=== PATIENT | male | born 1980 | race Caucasian/White ===

== ENCOUNTER 2017-02-06 19:09 | Emergency (ER) | payer OTHER ==
[~2017-02-06] VITALS: Ht 172.7 cm; Wt 99.8 kg
[~2017-02-06 19:09] MED LIST: DILAUDID2 MG PO; FLEXERIL10 MG PO; PANTOPRAZOLE SO40 M1 PO; PERCOCET 325 MG1 TA2 PO; VALIUM2 MG PO
[2017-02-06] MEDS ORDERED: MULTI-DAY VITA1 EACH PO (19:53)
--- NOTE | 2017-02-06 19:53 | ED GI/GU/ABDOMINAL COMPLAINT ---
History of Present Illness General Chief Complaint: Abdominal Pain/Flank Pain Stated Complaint: ABD PAIN Source: patient, old records Exam Limitations: no limitations Vital Signs & Intake/Output Vital Signs & Intake/Output Vital Signs Date Time Temp Pulse Resp B/P B/P Pulse O2 O2 Flow FiO2 Mean Ox Delivery Rate 02/07 2204 110/70 02/06 1917 98.9 89 15 135/83 97 Room Air Room Air ED Intake and Output 02/07 0000 02/06 1200 Intake Total 1000 Output Total Balance 1000 Intake, IV 1000 Intake, Oral 0 Patient 220 lb Weight Weight Reported by Patient Measurement Method Allergies Coded Allergies: NO KNOWN ALLERGIES (09/28/15) Reconcile Medications Multivitamin (Multi-Day Vitamins) 1 EACH TABLET 1 TAB PO DAILY SUPPLEMENT ( Reported) Pantoprazole Sodium 40 MG TABLET.DR 1 TAB PO DAILY GI (Reported) Triage Note: PT TO ED FOR C/C OF R ABD PAIN, ?HERNIA PER PT. WOKE UP WITH SMALL BULGE NOTED TO ABD, LIFTED 80 POUND BAGS YESTERDAY WITHOUT DIFFICULTY. PT REPORTS SOME NAUSEA, +HEADACHE. Triage Nurses Notes Reviewed? yes Onset: Abrupt Duration: day(s): (1), intermittent, waxing and waning Timing: recent history Quality/Severity: aching Severity Numbers: 5 Location: right lower quadrant Radiation: no radiation Activities at Onset: none Prior Abdominal Problems: none Modifying Factors: Worsens With: palpation. Associated Symptoms: DENIES HPI: 36-year-old male presents to ER for evaluation complaining of intermittent waxing and waning in intensity 6 out of 10 right mid and right lower quadrant abdominal tenderness. He first noticed the symptoms when he woke up this morning however went to work. The patient states that he does a lot of heavy lifting at work harder however denies any known specific injury. Pain is nonradiating. He denies any urinary symptoms and has made him nauseous today however denies vomiting diarrhea constipation. No fever no chills. He took Tylenol around 1:00 for a headache which she still has. No vision changes. No back pain. His abdominal surgeries are significant for multiple inguinal hernia repairs prior to 1-year-old and a nephrectomy. No other modifying factors or associated symptoms otherwise. (MARICRUZ CONLEY,ALE) Past History Travel History Traveled to [place] past 21 day No Medical History Any Pertinent Medical History? 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 No (ALE CAZARES) Review of Systems Review of Systems Constitutional: Reports: see HPI. All Other Systems: Reviewed and Negative Comments Review of systems: See HPI, All other systems negative. Constitutional, no chills no fever, no malaise HEENT: No visual changes no sore throat no congestion, no ear pain Cardiovascular: No chest pain , no palpitation , no orthopnea Skin: no rashes, no change in skin Respiratory: No dyspnea no cough no sputum GI: nausea no vomiting, no diarrhea, no bloating/constipation : No dysuria No hematuria, no frequency, no discharge Muscle skeletal: No joint pain, no joint swelling, no back pain, no neck pain, Neurologic: No numbness no headache Psych: No stress. Heme/endocrine: No bruising no bleeding Immunology: No lymphadenopathy (ALE CAZARES) Physical Exam Physical Exam General Appearance: well developed/nourished, alert, awake Gastrointestinal: soft Comments: Well-developed well-nourished person in no acute distress HEENT: Normal EENT exam; PERRL, EOMI, no nystagmus. HEAD is atraumatic. moist mucous membranes. Neck: Supple, normal range of motion Back: Nontender, no CVA tenderness. Full range of motion Cardiovascular: Regular rate and rhythms no murmurs rubs Respiratory: Chest nontender.There were no bony deformities, no asymmetry. No respiratory distress. Patient speaking in full complete sentences. 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 Normal bowel sounds. No rebound/ guarding, Extremity: No edema, full range of motion of extremities Neuro: Alert oriented x3, motor sensory normal. There were no obvious focal neurologic abnormalities. Skin: No appreciable rash on exposed skin, skin is warm and dry. Psych: Mood and affect is normal, memory and judgment is normal. Core Measures ACS in differential dx? No Severe Sepsis Present: No Septic Shock Present: No (MARICRUZ CONLEY,ALE) Progress Differential Diagnosis: appendicitis, bowel obstruction, colon cancer, gastritis , hepatitis, hernia, inflamm bowel dis, pancreatitis, peptic ulcer, SBO Plan of Care: Orders Procedure Date/time Status COMPREHENSIVE METABOLIC PANEL 02/06 2019 Complete CBC WITHOUT DIFFERENTIAL 02/06 2019 Complete Laboratory Tests 02/06/172040: Anion Gap 15, Estimated GFR > 60, BUN/Creatinine Ratio 12.5, Glucose 88, Calcium 9.5, Total Bilirubin 0.7, AST 33, ALT 52, Alkaline Phosphatase 70, Total Protein 7.4, Albumin 4.3, Globulin 3.1, Albumin/Globulin Ratio 1.4, CBC w Diff NO MAN DIFF REQ, RBC 5.18, MCV 89.1, MCH 29.6, RDW 13.6, MPV 7.9, Gran % 60.3, Lymphocytes % 30.9, Monocytes % 7.7, Eosinophils % 0.8, Basophils % 0.3, Absolute Granulocytes 6.0, Absolute Lymphocytes 3.1, Absolute Monocytes 0.8 H, Absolute Eosinophils 0.1, Absolute Basophils 0, PUBS MCHC 33.3 Labs ordered patient medicated with Tylenol by mouth IV fluids CAT scan ordered 02/06/2017 9:48:50 PM discussed with the patient at length all of his lab results pending CAT scan he denies any symptoms at this time On repeat evaluation patient is resting comfortably. I discussed with the patient at length all of their results and incidental findings, he is aware of the renal lesion on the right kidney. I had an extensive conversation regarding need for close follow up with their primary care physician this week as well as return precautions. I answered all of their questions, they feel comfortable with the plan and follow-up care. She is declining a finger pain when offered (MARICRUZ CONLEY,ALE) Diagnostic Imaging: Viewed by Me: CT Scan. Discussed w/RAD: CT Scan. Radiology Impression: PATIENT: WAN KNIGHT JR PRESENT AGE: 36 PATIENT ACCOUNT NO: [id number] : 80 LOCATION: [facility] ORDERING PHYSICIAN: ALE CONLEY SERVICE DATE: 02/06/17 EXAM TYPE: CAT - CT ABD & PELVIS W IV CONTRAST EXAMINATION: CT ABDOMEN AND PELVIS WITH CONTRAST CLINICAL INFORMATION: Right lower quadrant abdominal pain and nausea. Evaluate for appendicitis, hernia. COMPARISON: CT chest dated 08/24/2016. TECHNIQUE: Multidetector volumetric imaging was performed of the abdomen and pelvis before and after the IV administration of 94 mL of Optiray 320 intravenous contrast. Sagittal and coronal reformatted images were obtained on the technologist's workstation. DLP: 645.86 mGy-cm. FINDINGS: LUNG BASES: The visualized lung bases are unremarkable. LIVER, GALLBLADDER, AND BILIARY TREE: The liver is normal in size, shape, and attenuation. No focal hepatic lesion or biliary ductal dilatation is present. The gallbladder is unremarkable with no evidence of radiopaque gallstones, gallbladder wall thickening, or obvious pericholecystic inflammatory changes. PANCREAS: Unremarkable. SPLEEN: Unremarkable. ADRENAL GLANDS: Unremarkable. KIDNEYS AND URETERS: The left kidney is surgically absent. There is a new 1.8 cm nonspecific hypodensity within the superior pole of the right kidney. Nonemergent ultrasound follow-up is recommended to help further characterize. There is no right-sided hydronephrosis or nephrolithiasis. BLADDER: Nondistended. GASTROINTESTINAL TRACT: No large or small bowel obstruction. The appendix is normal. No intra-abdominal free air or free fluid. ABDOMINAL WALL: There are small bilateral fat-containing inguinal hernias, left greater than right. LYMPH NODES: There is no significant intra- abdominal lymphadenopathy. VASCULAR: Contrast opacifies the abdominal aorta and its branch vessels. The IVC is unremarkable. PELVIC VISCERA: The prostate and seminal vesicles are unremarkable. OSSEOUS STRUCTURES: There is a bone island superior to the left acetabulum. No additional osseous abnormality is identified. IMPRESSION: 1. Normal appendix. No large or small bowel obstruction. 2. No hydronephrosis or nephrolithiasis. New hypoenhancing lesion within the superior pole of the right kidney which is nonspecific. Nonemergent ultrasound follow-up is recommended to help further characterize. DICTATED BY: ZAINA GERMAIN MD DATE/TIME DICTATED:02/06/172140 SOLUTION MAKER:YAJAIRA DATE/TIME TRANSCRIBED:02/06/172140 CONFIDENTIAL, DO NOT COPY WITHOUT APPROPRIATE AUTHORIZATION. <Electronically signed in Other Vendor System> SIGNED BY: ZAINA GERMAIN MD 04/2203 Initial ED EKG: none (ALE CAZARES) Departure Departure Time of Disposition: 2204 Disposition: HOME OR SELF CARE Condition: Stable Clinical Impression Primary Impression: Abdominal pain Secondary Impressions: Inguinal hernia, Renal lesion Referrals: UNKNOWN (PCP/Family) Additional Instructions: Follow-up with your primary care physician on Wednesday limited heavy lifting Tylenol if needed for pain. Follow-up with her primary care physician as discussed regarding incidental finding during the cyst on your kidney. Return to the ER anytime sooner with any concerns. Departure Forms: Customer Survey General Discharge Information (ALE CAZARES) PA/CLOTH SECONDS SORTER Co-Sign Statement Statement: ED Attending supervision documentation- [] I saw and evaluated the patient. I have also reviewed all the pertinent lab results and diagnostic results. I agree with the findings and the plan of care as documented in the PA's/CLOTH SECONDS SORTER's documentation. [X] I have reviewed the ED Record and agree with the PA's/CLOTH SECONDS SORTER's documentation. [] Additions or exceptions (if any) to the PAs/CLOTH SECONDS SORTER's note and plan are summarized below: [] (AMAN MELGOZA,SAMY)
[2017-02-06 20:58] LABS: ABSOLUTE BASOPHIL COUNT 0 /CUMM (0.0-0.2); ABSOLUTE EOSINOPHIL COUNT 0.1 /CUMM (0.0-0.7); ABSOLUTE LYMPH COUNT 3.1 /CUMM (1.2-3.4); ABSOLUTE MONOCYTE COUNT 0.8 /CUMM (0.10-0.60); BASOPHIL % 0.3 % (0.0-2.0); EOSINOPHIL % 0.8 % (0-5); GRANULOCYTE % 60.3 % (42.2-75.2); HEMATOCRIT 46.2 % (42-52); MEAN CORPUSCULAR HGB 29.6 PG (27.0-31.0); MEAN CORPUSCULAR HGB CONC 33.3 G/DL (33.0-37.0); MEAN CORPUSCULAR VOLUME 89.1 FL (80.0-94.0); MEAN PLATELET VOLUME 7.9 FL (7.4-10.4); PLATELET COUNT 274 /CUMM (130-400); RBC DISTRIBUTION WIDTH 13.6 % (11.5-14.5); RED BLOOD CELL CT 5.18 /CUMM (4.70-6.10); WHITE BLOOD CELL COUNT 9.9 /CUMM (4.8-10.8)
[2017-02-06 22:04] VITALS: BP 110/70
--- NOTE | 2017-02-06 22:04 | CT SCAN REPORT ---
EXAMINATION: CT ABDOMEN AND PELVIS WITH CONTRAST CLINICAL INFORMATION: Right lower quadrant abdominal pain and nausea. Evaluate for appendicitis, hernia. COMPARISON: CT chest dated 08/24/2016. TECHNIQUE: Multidetector volumetric imaging was performed of the abdomen and pelvis before and after the IV administration of 94 mL of Optiray 320 intravenous contrast. Sagittal and coronal reformatted images were obtained on the technologist's workstation. DLP: 645.86 mGy-cm. FINDINGS: LUNG BASES: The visualized lung bases are unremarkable. LIVER, GALLBLADDER, AND BILIARY TREE: The liver is normal in size, shape, and attenuation. No focal hepatic lesion or biliary ductal dilatation is present. The gallbladder is unremarkable with no evidence of radiopaque gallstones, gallbladder wall thickening, or obvious pericholecystic inflammatory changes. PANCREAS: Unremarkable. SPLEEN: Unremarkable. ADRENAL GLANDS: Unremarkable. KIDNEYS AND URETERS: The left kidney is surgically absent. There is a new 1.8 cm nonspecific hypodensity within the superior pole of the right kidney. Nonemergent ultrasound follow-up is recommended to help further characterize. There is no right-sided hydronephrosis or nephrolithiasis. BLADDER: Nondistended. GASTROINTESTINAL TRACT: No large or small bowel obstruction. The appendix is normal. No intra-abdominal free air or free fluid. ABDOMINAL WALL: There are small bilateral fat-containing inguinal hernias, left greater than right. LYMPH NODES: There is no significant intra-abdominal lymphadenopathy. VASCULAR: Contrast opacifies the abdominal aorta and its branch vessels. The IVC is unremarkable. PELVIC VISCERA: The prostate and seminal vesicles are unremarkable. OSSEOUS STRUCTURES: There is a bone island superior to the left acetabulum. No additional osseous abnormality is identified. IMPRESSION: 1. Normal appendix. No large or small bowel obstruction. 2. No hydronephrosis or nephrolithiasis. New hypoenhancing lesion within the superior pole of the right kidney which is nonspecific. Nonemergent ultrasound follow-up is recommended to help further characterize.
== END 2017-02-06 22:16 ==
LOC: ERH 19:09
PROVIDERS: Physician Assistant Medical
DX: K40.90 Unilateral inguinal hernia, without obstruction or gangrene, not specified as recurrent (principal); N28.9 Disorder of kidney and ureter, unspecified
CPT/HCPCS: 74177

== ENCOUNTER 2017-11-04 17:02 | Emergency (ER) | payer OTHER ==
[~2017-11-04] VITALS: Ht 172.7 cm; Wt 99.8 kg
[~2017-11-04 17:02] MED LIST changes: +MULTI-DAY VITA1 EACH PO
[2017-11-04 17:32] VITALS: BP 120/64
--- NOTE | 2017-11-04 19:16 | ED NECK/BACK PAIN COMPLAINT ---
History of Present Illness General Chief Complaint: Lower Extremity Problems Stated Complaint: PT HAS SHOOTING BACK PAIN Source: patient Exam Limitations: no limitations Vital Signs & Intake/Output Vital Signs & Intake/Output Vital Signs Date Time Temp Pulse Resp B/P B/P Pulse O2 O2 Flow FiO2 Mean Ox Delivery Rate 11/04 2001 97 Room Air 11/04 1732 97.0 90 18 120/64 97 Room Air Room Air Allergies Coded Allergies: NO KNOWN ALLERGIES (09/28/15) Reconcile Medications Multivitamin (Multi-Day Vitamins) 1 EACH TABLET 1 TAB PO DAILY SUPPLEMENT ( Reported) Pantoprazole Sodium 40 MG TABLET.DR 1 TAB PO DAILY GI (Reported) Tylenol With Codeine (Tylenol With Codeine #3 Tablet) 300 MG-30 MG TABLET 1 TAB PO BIDP PRN PAIN DO NOT OPERATE MOTOR VEHICLES WITH THIS MEDICATION Triage Note: PT TO ED WITH C/O LOW BACK/COCCYX AREA PAIN "WOKE UP THIS MORNING WITH THE PAIN, WENT TO WORK FOR A COUPLE OF HOURS AND HAD TO LEAVE. Triage Nurses Notes Reviewed? yes Onset: Gradual Duration: constant Timing: recent history Radiation: none HPI: Patient is a 37-year-old male who presents to emergency room with concerns at yesterday while in a rocking chair feeding his twins where he states that his right leg and foot was crossed over on his left lower extremity where he states that he had a gradual onset of hip and sacral pain however today symptoms have worsens when patient woke up. Patient is complaining of localized sacral pain is made worse with palpation and movement and ambulation. Patient denies any mechanism injury or trauma denies any fever chills abdominal pain dysuria hematuria saddle paresthesia or lower extremity weakness pain or paresthesia (Fredi Freeman) Past History Travel History Traveled to [place] past 21 day No Medical History Any Pertinent Medical History? 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 No (Fredi Freeman) Review of Systems Review of Systems Constitutional: Reports: no symptoms. Eyes: Reports: no symptoms. Ears, Nose, Throat, Mouth: Reports: no symptoms. Respiratory: Reports: no symptoms. Cardiovascular: Reports: no symptoms. Gastrointestinal/Abdominal: Reports: no symptoms. Musculoskeletal: Reports: see HPI, back pain. Skin: Reports: no symptoms. Neurological/Psychological: Reports: no symptoms. All Other Systems: Reviewed and Negative (Fredi Freeman) Physical Exam Physical Exam General Appearance: alert, awake, comfortable Head: atraumatic Eyes: Bilateral: normal appearance. Ears, Nose, Throat, Mouth: moist mucous membrane Neck: normal inspection Respiratory: no respiratory distress Gastrointestinal: normal bowel sounds, soft, non-tender Back: normal inspection Extremities: non-tender, normal range of motion Skin: intact, normal color, warm/dry Comments: Inspectionn of the sacral iliac joint was unremarkable no signs of erythema or infectious processes patient has point tenderness upon palpation of the generalized sacral region no abscess no erythema no concerns of quadA equinA's syndrome Core Measures CVA/TIA Diagnosis: No (Fredi Freeman) Progress Differential Diagnosis: AAA, C spine injury, carotid dissection, cauda equina syn, herniated disc, myofascial strain, pyelo/UTI, sciatica, spinal cord inj, thoracic outlet syn, T/L spine injury, ureterolithiasis Plan of Care: No concerns of discitis or abscess at this time, patient has bilateral lower extremity neurovascular was intact. Patient will be treated for concerns of sacroiliitis or SI joint dysfunction (Fredi Freeman) Departure Departure Disposition: HOME OR SELF CARE Condition: Stable Clinical Impression Primary Impression: Sacral pain Referrals: Unknown (PCP/Family) Additional Instructions: As discussed begin icing the area directly 20 minutes every 2 hours Begin the prescription Tylenol with Codeine for pain please follow-up with [facility] to establish a doctor. 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 I have also reviewed all the pertinent lab results and diagnostic results. I agree with the findings and the plan of care as documented in the PA's/MARINE CHRONOMETER ASSEMBLER's documentation. x I have reviewed the ED Record and agree with the PA's/MARINE CHRONOMETER ASSEMBLER's documentation. [] Additions or exceptions (if any) to the PAs/MARINE CHRONOMETER ASSEMBLER's note and plan are summarized below: [] (Satish MELGOZA,Vinayak)
[2017-11-04] MEDS ORDERED: TYLENOL WITH C1 EACH PO (19:35)
== END 2017-11-04 20:06 ==
LOC: ERH 17:02
DX: M53.3 Sacrococcygeal disorders, not elsewhere classified (principal)